=== PATIENT | female | born 1990 | race Caucasian/White ===

== ENCOUNTER 2018-02-25 13:44 | Inpatient (IN) | payer OTHER ==
[~2018-02-25] VITALS: Ht 152.4 cm; Wt 77.1 kg
[~2018-02-25 13:44] MED LIST: KEP500 PO; RIS1 PO
[2018-02-25 14:04] VITALS: Ht 152.4 cm; Wt 77.1 kg
[2018-02-25 14:21] LABS: BASOPHIL % 0.2 % (0-2); RED CELL DISTRIBUTION WIDTH 12.6 % (11.5-14.5)
[2018-02-25 14:22] LABS: PLATELET COUNT 403 x10^3mcL (130-400)
[2018-02-25 14:35] LABS: CARBON DIOXIDE 13.4 mmol/L (21-32); CHLORIDE SERUM 100 mmol/L (98-107); CREATININE SERUM 1.1 mg/dL (0.6-1.0); GFR1 > 60 mL/min; GLUCOSE SERUM 154 mg/dL (74-106); POTASSIUM SERUM 3.5 mmol/L (3.5-5.1); SODIUM SERUM 138 mmol/L (136-145)
[2018-02-25 14:40] LABS: ALBUMIN 4.3 g/dL (3.4-5.0); ALKALINE PHOSPHATASE 102 U/L (46-116); ALT/SGPT 44 U/L (14-59); AST/SGOT 23 U/L (15-37); BILIRUBIN TOTAL 0.4 mg/dL (0.20-1.00); TOTAL PROTEIN, SERUM 8.5 g/dL (6.4-8.2)
[2018-02-25 15:04] LABS: microscopic required? NO
[2018-02-25 15:12] LABS: UA SPECIFIC GRAVITY >=1.030 (1.005-1.035); urine erythrocyte NEGATIVE (NEGATIVE)
[2018-02-25] MEDS ORDERED: LAMICTAL200 MG PO (16:06)
[2018-02-25] MEDS ORDERED: VALIUM2 MG RC (16:07)
[2018-02-25 16:44] LABS: MAGNESIUM 1.8 mg/dL (1.8-2.4); PHOSPHOROUS 3.8 mg/dL (2.5-4.9)
[2018-02-25 16:45] LABS: CHOLESTEROL/HDL RATIO 5.9
[2018-02-25 17:16] LABS: FREE T4 1.1 ng/dL (0.76-1.46); FREE THYROXINE INDEX 3.1 ug/dL (1.4-4.5); T4(THYROXINE) 10.8 ug/dL (4.7-13.3)
[2018-02-25 17:18] LABS: T3 TOTAL 1.6 ng/mL
[2018-02-25 17:24] VITALS: BP 140/87
[2018-02-25 19:00] VITALS: BP 115/70
[2018-02-25 23:35] VITALS: BP 115/70
[2018-02-26 05:16] VITALS: BP 109/66
[2018-02-26 06:16] LABS: CALCIUM 8.1 mg/dL (8.5-10.1); CARBON DIOXIDE 25.5 mmol/L (21-32); CHLORIDE SERUM 107 mmol/L (98-107); CREATININE SERUM 0.7 mg/dL (0.6-1.0); GFR1 > 60 mL/min; GLUCOSE SERUM 94 mg/dL (74-106); POTASSIUM SERUM 3.4 mmol/L (3.5-5.1); SODIUM SERUM 140 mmol/L (136-145)
[2018-02-26 06:30] LABS: BASOPHIL % 0.3 % (0-2); PLATELET COUNT 345 x10^3mcL (130-400); RED CELL DISTRIBUTION WIDTH 12.9 % (11.5-14.5)
[2018-02-26 09:49] VITALS: BP 121/78
[2018-02-26 13:39] VITALS: BP 126/77
[2018-02-26 16:29] VITALS: BP 116/73
[2018-02-26 20:12] VITALS: BP 112/78
[2018-02-27 05:34] VITALS: BP 92/54
[2018-02-27 06:21] LABS: BASOPHIL % 0.3 % (0-2); PLATELET COUNT 318 x10^3mcL (130-400); RED CELL DISTRIBUTION WIDTH 12.9 % (11.5-14.5)
[2018-02-27 06:22] LABS: CHLORIDE SERUM 107 mmol/L (98-107); CREATININE SERUM 0.5 mg/dL (0.6-1.0); GFR1 > 60 mL/min; GLUCOSE SERUM 104 mg/dL (74-106); POTASSIUM SERUM 3.3 mmol/L (3.5-5.1); SODIUM SERUM 142 mmol/L (136-145)
[2018-02-27 09:40] VITALS: BP 123/77
[2018-02-27 13:30] VITALS: BP 107/68
[2018-02-27] MEDS ORDERED: LEVAQUIN750 MG PO (13:50)
[2018-02-27] MEDS ORDERED: FLAGYL500 MG PO (13:51)
[2018-02-27] MEDS ORDERED: LAC PO (13:53)
[2018-02-27] MEDS ORDERED: MYCOC TOP (14:14)
[2018-02-27 14:15] VITALS: BP 123/77
== END 2018-02-27 16:27 | disposition home or self-care (01) | DRG 720 ==
LOC: ED 13:44 → DU 16:11 → MU 16:11 → DU 23:37
PROVIDERS: Emergency Medicine; Family Medicine
DX: A41.9 Sepsis, unspecified organism (principal); J96.10 Chronic respiratory failure, unspecified whether with hypoxia or hypercapnia; Z99.81 Dependence on supplemental oxygen; A09 Infectious gastroenteritis and colitis, unspecified; G40.802 Other epilepsy, not intractable, without status epilepticus; G80.9 Cerebral palsy, unspecified; E78.5 Hyperlipidemia, unspecified; E02 Subclinical iodine-deficiency hypothyroidism; Z90.49 Acquired absence of other specified parts of digestive tract
CPT/HCPCS: 84439; 87046; 87046-59; C9113; J1644; J1953; J2060; J2405; J2543; J2550; J3490; J7030; J7050; Q0092

== ENCOUNTER 2018-03-11 16:42 | Emergency (ER) | payer OTHER ==
[~2018-03-11] VITALS: Ht 152.4 cm; Wt 79.8 kg
[~2018-03-11 16:42] MED LIST changes: +FLAGYL500 MG PO; +LAC PO; +LAMICTAL200 MG PO; +LEVAQUIN750 MG PO; +MYCOC TOP; +VALIUM2 MG RC
[2018-03-11 16:45] VITALS: Ht 152.4 cm; Wt 79.8 kg
[2018-03-11 18:39] LABS: UA SPECIFIC GRAVITY 1.015 (1.005-1.035); microscopic required? YES; urine erythrocyte NEGATIVE (NEGATIVE)
[2018-03-11 19:02] VITALS: BP 114/70
== END 2018-03-11 19:02 | disposition home or self-care (01) ==
LOC: ED 16:42
PROVIDERS: Specialist
DX: R11.10 Vomiting, unspecified (principal); R19.7 Diarrhea, unspecified; R10.9 Unspecified abdominal pain; R63.0 Anorexia; Z90.49 Acquired absence of other specified parts of digestive tract; Z90.89 Acquired absence of other organs
CPT/HCPCS: J2765

== ENCOUNTER 2019-03-07 15:42 | Emergency (ER) | payer OTHER ==
[~2019-03-07] VITALS: Ht 152.4 cm; Wt 77.6 kg
[2019-03-07 15:46] VITALS: Ht 152.4 cm; Wt 77.6 kg
[2019-03-07 17:17] VITALS: BP 132/57
== END 2019-03-07 17:17 | disposition home or self-care (01) ==
LOC: ED 15:42
DX: J06.9 Acute upper respiratory infection, unspecified (principal); R19.7 Diarrhea, unspecified; R11.10 Vomiting, unspecified; Z90.49 Acquired absence of other specified parts of digestive tract; Z88.8 Allergy status to other drugs, medicaments and biological substances